=== PATIENT | male | born 2005 | race Caucasian/White ===

== ENCOUNTER 2023-03-31 16:23 | Emergency (ER) | payer SELFPAY ==
[~2023-03-31] VITALS: Ht 167.6 cm; Wt 58.0 kg
[2023-03-31 16:30] VITALS: TEMP 98; O2SAT 99
[2023-03-31 20:15] VITALS: BP 137/81; PULSE 98; RESP 19
== END 2023-03-31 20:16 | disposition home or self-care (01) ==
LOC: ER 16:23
DX: S63.639A Sprain of interphalangeal joint of unspecified finger, initial encounter (principal); X58.XXXA Exposure to other specified factors, initial encounter; Y93.89 Activity, other specified; Y92.89 Other specified places as the place of occurrence of the external cause; Y99.8 Other external cause status
CPT/HCPCS: 73140; 99283